=== PATIENT | female | born 1975 | race Asian ===

== ENCOUNTER 2018-12-24 11:00 | Emergency (ER) | payer OTHER ==
[~2018-12-24] VITALS: Ht 157.5 cm; Wt 63.5 kg
[2018-12-24] MEDS ORDERED: SYNTHROID (12:06)
[2018-12-24] MEDS ORDERED: SULFAMETHOXAZOLE (12:08)
== END 2018-12-24 16:03 | disposition home or self-care (01) ==
LOC: ER 11:00
DX: N39.0 Urinary tract infection, site not specified (principal); R10.32 Left lower quadrant pain

== ENCOUNTER 2021-05-22 07:45 | Outpatient (CLI) | payer OTHER ==
[~2021-05-22 07:45] MED LIST: SULFAMETHOXAZOLE; SYNTHROID
== END 2021-05-22 08:01 | disposition home or self-care (01) ==
LOC: MAMO-SONO 07:45
PROVIDERS: ATTEND Specialist
DX: N63.10 Unspecified lump in the right breast, unspecified quadrant (principal); N63.20 Unspecified lump in the left breast, unspecified quadrant; Z12.31 Encounter for screening mammogram for malignant neoplasm of breast; Z87.898 Personal history of other specified conditions; E06.3 Autoimmune thyroiditis; E04.2 Nontoxic multinodular goiter; E78.2 Mixed hyperlipidemia; E55.9 Vitamin D deficiency, unspecified; E56.8 Deficiency of other vitamins

== ENCOUNTER → 2023-03-05 | Outpatient (CLI) | payer OTHER | END | disposition home or self-care (01) | LOC: SONOGRAMA 09:22 | PROVIDERS: ATTEND General Practice | DX: E04.2 Nontoxic multinodular goiter (principal); E06.3 Autoimmune thyroiditis; E78.2 Mixed hyperlipidemia; E55.9 Vitamin D deficiency, unspecified; E56.8 Deficiency of other vitamins; R73.01 Impaired fasting glucose; Z13.1 Encounter for screening for diabetes mellitus ==

== ENCOUNTER 2025-04-18 14:07 | Outpatient (CLI) | payer OTHER | END 2025-04-18 14:12 | disposition home or self-care (01) | LOC: SONOGRAMA 14:07 | PROVIDERS: ATTEND General Practice | DX: E06.3 Autoimmune thyroiditis (principal); R80.9 Proteinuria, unspecified; E04.2 Nontoxic multinodular goiter; E78.2 Mixed hyperlipidemia; E55.9 Vitamin D deficiency, unspecified; E56.8 Deficiency of other vitamins; R73.01 Impaired fasting glucose; Z13.1 Encounter for screening for diabetes mellitus ==

== ENCOUNTER 2025-11-07 08:01 | Outpatient (CLI) | payer OTHER | END 2025-11-07 08:06 | disposition home or self-care (01) | LOC: SONOGRAMA 08:01 | PROVIDERS: ATTEND Student in an Organized Health Care Education/Training Program | DX: R10.84 Generalized abdominal pain (principal); R10.0 Acute abdomen; R10.20 Pelvic and perineal pain unspecified side ==